=== PATIENT | female | born 1985 | race Caucasian/White ===

== ENCOUNTER 2017-12-08 11:55 | Emergency (ER) | payer OTHER ==
[~2017-12-08] VITALS: Ht 152.4 cm; Wt 91.2 kg
[2017-12-08 11:59] VITALS: Ht 152.4 cm; Wt 91.2 kg
[2017-12-08 15:34] VITALS: BP 110/58
== END 2017-12-08 15:34 | disposition home or self-care (01) ==
LOC: ED 11:55
DX: F41.1 Generalized anxiety disorder (principal)

== ENCOUNTER 2019-04-09 13:11 | Emergency (ER) | payer OTHER ==
[~2019-04-09] VITALS: Ht 160 cm; Wt 93.4 kg
[2019-04-09 13:31] VITALS: Ht 160 cm; Wt 93.4 kg
[2019-04-09 15:50] VITALS: BP 138/59
== END 2019-04-09 15:50 | disposition home or self-care (01) ==
LOC: ED 13:11
DX: J06.9 Acute upper respiratory infection, unspecified (principal); R51 Headache

== ENCOUNTER 2019-11-07 20:27 | Emergency (ER) | payer OTHER, SELFPAY ==
[~2019-11-07] VITALS: Ht 165.1 cm; Wt 81.6 kg
[2019-11-07 20:32] VITALS: Ht 165.1 cm; Wt 81.6 kg
[2019-11-07 22:28] VITALS: BP 106/65
== END 2019-11-07 22:59 | disposition home or self-care (01) ==
LOC: ED 20:27
DX: R51 Headache (principal); R05 Cough; J02.9 Acute pharyngitis, unspecified; M79.10 Myalgia, unspecified site; Z20.828 Contact with and (suspected) exposure to other viral communicable diseases
CPT/HCPCS: J0780; U0003-CS

== ENCOUNTER 2019-11-16 22:22 | Emergency (ER) | payer OTHER, SELFPAY ==
[~2019-11-16] VITALS: Ht 162.6 cm; Wt 77.1 kg
[2019-11-16 22:26] VITALS: Ht 162.6 cm; Wt 77.1 kg
[2019-11-17 02:39] VITALS: BP 97/52
== END 2019-11-17 02:40 | disposition home or self-care (01) ==
LOC: ED 22:22
DX: B34.9 Viral infection, unspecified (principal); E86.0 Dehydration; Z20.828 Contact with and (suspected) exposure to other viral communicable diseases
CPT/HCPCS: 87804; J1200; J1885; J2765; Q0092; U0003-CS